=== PATIENT | female | born 1980 | race Caucasian/White ===

== ENCOUNTER 2022-05-26 08:26 | Outpatient (CLI) | payer OTHER, SELFPAY ==
--- NOTE | ~2022-05-26 | CT_ITS ---
EXAMINATION: CT pelvis w con DATE: 05/26/2022 09:16 INDICATION: Osteitis pubis. Pelvic pain for 6 months. TECHNIQUE: Computed tomography (CT) of the pelvis was performed with 100 mL Omnipaque 350 intravenous contrast. Automated exposure control and iterative reconstruction technique were employed. The dose- length product was 310.71 mGy-cm. COMPARISON: None FINDINGS: There are no dilated loops of bowel. The ovaries are normal. There are no pathologically en larged lymph nodes. There is no free intraperitoneal fluid. There is mild osteitis pubis. There is mi ld osteoarthritis of the hips. IMPRESSION: 1. Mild osteitis pubis. 2. Mild osteoarthritis of the hips. Reviewed, dictated and finalized at location A. R [facility]
== END 2022-05-26 08:27 | disposition home or self-care (01) ==
LOC: ANHIMG 08:30
PROVIDERS: Visit Provider Obstetrics & Gynecology
DX: M86.9 Osteomyelitis, unspecified (principal); M16.0 Bilateral primary osteoarthritis of hip
CPT/HCPCS: 72193; Q9967